=== PATIENT | male | born 1975 | race African-American/Black ===

== ENCOUNTER 2023-03-07 09:48 | Observation (INO) | payer OTHER, SELFPAY ==
[2023-03-07] VITALS (14 sets, daily range): BP systolic 161–190; BP diastolic 99–121; PULSE 77–102; RESP 14–23; TEMP 35.9–37.3; O2SAT 96–100; BMI 31.1; BMI 28.5
--- NOTE | 2023-03-07 10:15 | EKG12_ITS ---
Test Reason : CP Blood Pressure : / mmHG Vent. Rate : 092 BPM Atrial Rate : 092 BPM P-R Int : 168 ms QRS Dur : 100 ms QT Int : 364 ms P-R-T Axes : 043 -29 247 degrees QTc Int : 450 ms Normal sinus rhythm Moderate voltage criteria for LVH, may be normal variant ( R in aVL , [place] product ) ST & T wave abnormality, consider inferior ischemia ST & T wave abnormality, consider anterolateral ischemia Abnormal ECG Confirmed by ANGELA BAKER, MARIVEL ([id number]), senior technical editor BERHANE DYE ([id number]) on 03/08/2023 7:19:12 AM Referred By: KERRY Confirmed By:MARIVEL MILLER MD
--- NOTE | 2023-03-07 10:15 | RAD_ITS ---
STUDY: X-RAY CHEST REASON FOR EXAM: Male, 47 years old. Chest pain TECHNIQUE: Single AP portable view of the chest. COMPARISON: None. FINDINGS: EKG electrodes are seen. The lungs are clear and expanded. There is no demonstrated pleural abnormality. Normal size heart. Normal mediastinum and navarro. Normal visualized pulmonary arteries. There is atherosclerotic tortuosity of the aortic arch and descending thoracic aorta. Normal visualized thoracic spine. Normal visualized ribs, clavicles, and shoulders. There is no demonstrated abnormality of the visualized soft tissue structures of the upper abdomen. RAD/Chest 1 View (Portable) IMPRESSION: No acute abnormality is present. Electronically Signed: Satinder Li MD at 11:58 EST ,
--- NOTE | 2023-03-07 10:21 | NURSING ---
NO OLD EKGS
--- NOTE | 2023-03-07 10:29 | NURSING ---
NO OLD EKGS
[2023-03-07 10:43] LABS: Absolute Lymphocyte Count 2.56 X10^3/uL (0.83-4.51); Absolute Neutrophil Count 5.1 X10^3/uL (2.0-7.7); Basophil# 0.05 X10^3/uL; Basophil% 0.6 % (0-1); Eosinophil# 0.07 X10^3/uL; Eosinophils% 0.8 % (0-5); Hematocrit 47.4 % (40-54); Hemoglobin 15.4 g/dL (13.0-16.5); Lymphocyte # 2.56 X10^3/ul (0.83-4.51); Lymphocyte % 29.2 % (19-41); Mean Corp Hgb Conc 32.5 g/dL (32-36); Mean Corpuscular Hgb 26.1 pg (27.0-32.0); Mean Corpuscular Volume 80.2 fL (80-94); Monocyte# 0.93 X10^3/uL; Monocyte% 10.6 % (0-10); NRBC Flagged by Analyzer 0 % (0-5); Neutrophil # 5.12 X10^3/uL (2.7-7.7); Neutrophil % 58.2 % (47-70); POSITIVE MORPHOLOGY YES; Platelet Count 319 K/mm3 (150-450); RBC Distribution Width CV 12.7 % (11.6-14.6); RBC Distribution Width SD 36.3 fl (35.1-43.9); Red Blood Count 5.91 M/mm3 (4.6-6.2); White Blood Count 8.8 K/mm3 (4.4-11.0)
[2023-03-07 10:50] LABS: Differential Indicated SCAN CRITERIA MET
[2023-03-07] MEDS: Aspirin 81 MG TAB.CHEW 324 MG PO (10:52)
[2023-03-07 11:02] LABS: Anion Gap 4 (5-15); BUN 10 mg/dL (7-18); BUN/Creat Ratio 7.5 RATIO (10-20); Calcium,Total 9.1 mg/dL (8.5-10.1); Chloride 104 mmol/L (98-107); Creatinine, Serum 1.33 mg/dL (0.70-1.30); EST Glomerular Filtration Rate 61 mL/min (>60); Est Glom Filt Rate - Afr Amer 74 mL/min (>60); Glucose 166 mg/dL (74-106); Sodium Level 136 mmol/L (136-145); Troponin-I HS (w/2H Reflex) 72 pg/mL (3.0-78.0)
--- NOTE | 2023-03-07 11:16 | EDS_ITS ---
HPI History of Present Illness Chief Complaint: Chest Pain Detail of Chief Complaint: Presents with retrosternal chest discomfort, high blood sugar and recent UR Informant: patient and spouse/S.O. Onset/Context/Timing Onset: Weeks (Onset of illness started February 15) Activity at onset: sudden and other (Reports pain only with coughing) Timing: Intermittent Quality: Positive for Aching and Dull Location: Substernal Current Severity: Gone Maximum Severity: Moderate Worsened By: Exertion (Possibly) and Coughing; Not Worsened By Movement of Arm, Movement of Torso, Eating, Palpation or Breathing Relieved By: Nothing Associated Symptoms: Positive for Diaphoresis, Dyspnea and Cough; Negative for Nausea, Vomiting, Fever, Lightheadedness, Acid Reflux or Palpitations Narrative Narrative: Patient is a 47-year-old male with history of hypertension and type 2 diabetes. Patient has been diabetic since 2019. He has had hypertension since 2016 Prior Similar Symptoms: No Recent Illness/Hospitalization: Yes (Sinus infection diagnosed at [place] on amoxicillin) CVD Risk Factors: Positive for Hypertension, Diabetes and Hypercholesterolemia; Negative for Smoking PE Risk Factors: Positive for Recent Travel/Surgery; Negative for Recent Immobilization, Prior DVT or PE, Cancer or OCP + Smoking + >/=35 TAD Risk Factors: Positive for Hypertension and Family History; Negative for Marfan's Syndrome [facility] Medical History Diabetes Hypertension Allergy/AdvReac Type Severity Reaction Status Date / Time No Known Allergies Allergy Verified 03/07/23 09:49 Social History (Updated 03/07/23 @ 11:[address] Alber Philip MD) household members: significant other Smoking Status: Never smoker substance use type: does not use ROS ROS ED Constitutional Constitutional ED: Reports fever(s) and subjective; Denies chills, sweats or weight loss Eyes Eyes: Reports none ENT ENT ED: Reports rhinorrhea and sore throat; Denies ear pain Cardiovascular Cardiovascular: Reports as per HPI; Denies orthopnea or paroxysmal nocturnal dyspnea Respiratory/Chest Respiratory/Chest: Reports cough, dyspnea and dyspnea on exertion; Denies orthopnea, paroxysmal nocturnal dyspnea or sputum Gastrointestinal Gastrointestinal: Reports nausea; Denies abdominal pain, constipation, diarrhea, melena or vomiting Genitourinary Genitourinary ED: Denies dysuria, hematuria or urinary frequency Musculoskeletal Musculoskeletal: Denies arthralgias, back pain or myalgias Integumentary Denies rash Neurologic Neurologic: Denies headache(s) or paresthesias Endocrine Endocrinology: Denies cold intolerance or heat intolerance Hematologic/Lymphatic Hematologic/Lymphatic: Denies easy bleeding or easy bruising EXAM Physical Exam Const Vital Signs: 03/07/23 09:49 03/07/23 10:54 03/07/23 12:00 Temperature 96.6 F L Temperature Source Temporal Pulse Rate 95 82 Respiratory Rate 18 16 Blood Pressure 175/119 H 161/110 H Blood Pressure Mean 137 127 Pulse Ox 98 100 Oxygen Delivery Method Room Air Room Air 03/07/23 13:00 03/07/23 14:07 Temperature Temperature Source Pulse Rate 77 84 Respiratory Rate 21 H 14 Blood Pressure 168/106 H 177/112 H Blood Pressure Mean 126 133 Pulse Ox 98 97 Oxygen Delivery Method Room Air Room Air Positive well nourished and well developed General Appearance ED: well developed and NAD; Negative for pallor HEENT Reports TM's clear and dry mucous membranes normocephalic and atraumatic Tympanic Membrane ED: Yes TM's clear Mouth ED: Yes dry mucous membranes Mouth: dry mucous membranes Eyes PERRL and EOMs intact bilaterally General Eye ED: Negative for pale conjunctiva or scleral icterus Neck no lymphadenopathy, supple and no JVD Chest Wall inspection of chest normal and palpation of chest normal Resp normal respiratory effort and clear to auscultation bilaterally Cardio regular rate, regular rhythm, S1 normal heart sound, S2 normal heart sound and no murmurs Peripheral Pulses: pulses 2+ throughout GI normal to inspection, nondistended, normoactive bowel sounds, soft to palpation, non-tender, non-distended and no masses; Negative for hepatosplenomegaly Back/Spine no CVA tenderness and no thoracic nor lumbar tenderness Extremity normal to inspection Extremity Narrative: Have evidence of dry skin. There is no asymmetry, swelling, discoloration, leg vein distention, palpable cords or tenderness along the distribution of the deep venous system. General Extremety ED: Negative for edema or pulses abnormal General Extremity: Negative for edema or pulses abnormal Neuro oriented x3, CN's II-XII intact bilaterally, no sensory deficits noted and gait normal Sensorium / Orientation: awake and alert Psych mental status grossly normal Skin Skin Narrative: Dyshidrotic eczema, atopic to dermatitis General Skin Exam: Negative for jaundice or pallor Heart Score History: Slightly/Non-Suspicious ECG: Nonspecific Repolarization Age: >45 - <65 years Risk Factors: >/= 3 Risk Factors or History of CAD Troponin: </= Normal Limit Score: 4 MDM MDM MDM Narrative Medical decision making narrative: Patient presents with upper respiratory symptoms started February 15. He has had 2 long distance trips 1 to [facility] where his parents live and then to [place] to go to a . He presently denies dyspnea or pleuritic chest pain and denies symptoms suggestive of DVT. Is PERC negative. Concerned this may represent atypical cardiac presentation in light of his abnormal EKG and there is no old EKGs for comparison. For this reason we will obtain troponin with repeat troponin hours. His main complaint is elevated blood sugar but he is not tachypneic or tachycardic to suggest DKA. Will obtain BMP. Do not need an emergent BGT. History & Record Review Discussion w/independent historian: Patient and Significant other Lab Data Attestation: I reviewed the patient's lab results. Lab results narrative: CBC is unremarkable. Basic metabolic panel reveals a BUN of 10 and a creatinine of 1.33 with an estimated GFR 74. Glucose is slightly elevated 166 with a normal CO2 anion gap. Labs: Laboratory Results - last 24 hr 03/07/23 03/07/23 10:30 13:05 WBC 8.8 RBC 5.91 Hgb 15.4 Hct 47.4 MCV 80.2 MCH 26.1 L MCHC 32.5 RDW Std Deviation 36.3 RDW Coeff of Minh 12.7 Plt Count 319 MPV 11.0 Immature Gran % (Auto) 0.600 Neut % (Auto) 58.2 Lymph % (Auto) 29.2 Schleicher % (Auto) 10.6 H Eos % (Auto) 0.8 Baso % (Auto) 0.6 Absolute Neuts (auto) 5.1 Absolute Lymphs (auto) 2.56 Nucleated RBC % 0 Differential Comment SCANNED Sodium 136 Potassium 4.0 Chloride 104 Carbon Dioxide 28.0 Anion Gap 4 L BUN 10 Creatinine 1.33 H Estim Creat Clear Calc 70.40 Est GFR (MDRD) Af Amer 74 Est GFR (MDRD) Non-Af 61 BUN/Creatinine Ratio 7.5 L Glucose 166 H Calcium 9.1 Troponin I High Sens 72 52 Radiography Chest X-Ray - ED: 1 View and Read by ED Physician (Head size normal. Lung parenchyma normal. Perihilar region normal. Osseous structures unremarkable. This was entirely reviewed interpreted by me at 1112.) Diagnostic Testing: Clinical Impression(s) from Imaging Studies Chest X-Ray 03/07/23 10:15 IMPRESSION: No acute abnormality is present. Electronically Signed: Satinder Li MD at 11:58 EST , EKG Initial EKG: Attestation: I personally reviewed and interpreted this EKG as follows: Interpretation: Sinus Rhythm (Is 92. MN interval is under 68 ms. Cures duration 100 ms. QT durations are 64 ms. [place] is normal. Possible borderline LVH. Patient has ischemic changes in the anterolateral leads V3 through V6. Disagree with computer interpretation of inferior ischemic changes.) Prior: No Prior Management Discussion w/another healthcare provider: Hospitalist and Bottoming Room Supervisor (Dr. Terry regarding patient's presentation past medical history and EKG findings. [facility] with consult to him.) Discharge Plan Triage Chief Complaint: Chest Pain ED Provider: Alber Philip Dx/Rx/DC Orders Clinical Impression: Type 2 diabetes mellitus with hyperglycemia, Diastolic blood pressure 90 mm Hg or higher, Atypical chest pain, Abnormal ECG Primary Care Provider: Gene Saldana Referrals: Gene Saldana MD [Primary Care Provider] - Disposition Disposition: Acute Care Hospital [facility]
[2023-03-07 11:42] LABS: Differential Comment SCANNED
[2023-03-07 12:36] LABS: Reflex Troponin-HS? (from REC) Y
[2023-03-07 13:29] LABS: Troponin-I HS 52 pg/mL (3.0-78.0)
--- NOTE | 2023-03-07 14:42 | PCM.HP.STD ---
HPI - General General Date of Admission: 03/07/23 Date of Service: 03/07/23 Chief Complaint: Chest pain, dyspnea. HPI Narrative The patient is a 47 y/o M w/ PMHx: Diabetes mellitus type II, Obesity, HTN, Suspected CKD stage II unclear subtype based on GFR trending (current recommendations to use non-Af GFR) who presents to the [facility] ED on 03/07/23 with history of onset of retrosternal chest discomfort with history of recent upper respiratory infection starting approximate February 15 with discomfort in his chest initially primarily with coughing noted to be intermittent however now with dull and aching sensation primarily in the substernal region with diaphoresis and dyspnea associated prompting eventual ED evaluation. He does report that he was diagnosed recently at [place] with sinus infection and was given possibly Augmentin at that time. He recently moved to [place]. In the ED currently he denies any chest pain but when he was having chest discomfort he reports the discomfort 3-4 out of 10 in severity. He denies any current dyspnea at this time as well. Workup in the ED included T96.6, heart rate 95, BP initially 175/119 with most recent repeat 177/112, respiratory rate 14, 97% room air, CBC with WBC 8.8, Ariel 15.4, platelet 319 without marked shift, BMP with BUN/pain 10/1.33, glucose 166, troponin initial 72 with repeat delta 52, chest x-ray no acute cardiopulmonary finding, EKG with sinus rhythm with ischemic changes in the anterior leads V3 through V6 with no prior comparison. ED did discuss case with waste chopper Dr. Grant. In the ED patient ministered full-strength aspirin therapy. [facility] Medical History (Updated 03/07/23 @ 14:[address] Desirae Nice MD) CKD (chronic kidney disease), stage II Diabetes Hypertension Obesity Home Medications lisinopril 10 mg tablet 10 mg PO DAILY 03/07/23 [History Last Taken 03/07/23] metformin 500 mg tablet 1,000 mg PO BID 03/07/23 [History Last Taken 03/07/23] Allergy/AdvReac Type Severity Reaction Status Date / Time No Known Allergies Allergy Verified 03/07/23 09:49 Family History (Updated 03/07/23 @ 16:[address] Desirae Nice MD) Mother Hypertension Father Hypertension Diabetes Surgical History (Updated 03/07/23 @ 16:[address] Desirae Nice MD) No history of previous surgery Surgical History no surgical history no surgical history Social History (Updated 03/07/23 @ 16:[address] Desirae Nice MD) household members: significant other Smoking Status: Never smoker alcohol intake: never substance use type: does not use ROS ROS Narrative Admission Review of Systems: CONSTITUTIONAL: No weight loss, fever, chills, + weakness or fatigue. HEENT: Eyes: No visual loss, blurred vision, double vision or yellow sclerae. Ears, Nose, Throat: No hearing loss, sneezing, congestion, runny nose or sore throat. SKIN: No rash or itching, lesions, wounds. CARDIOVASCULAR: + Chest pain. Palpitations, edema, orthopnea, syncopal events. RESPIRATORY: + Shortness of breath. Cough or sputum, wheezing, hemoptysis. GASTROINTESTINAL: No anorexia, nausea, vomiting or diarrhea, abdominal pain, melena, BRBPR. GENITOURINARY: No dysuria, frequency, urgency or retention. NEUROLOGICAL: No headache, dizziness, syncope, paralysis, ataxia, numbness or tingling in the extremities, focal weakness, change in bowel or bladder control, seizure. MUSCULOSKELETAL: + muscle, back pain, joint pain or stiffness. HEMATOLOGIC: No anemia, bleeding or bruising. LYMPHATICS: No enlarged nodes. No history of splenectomy. PSYCHIATRIC: No history of depression or anxiety. ENDOCRINOLOGIC: No reports of sweating, cold or heat intolerance. No polyuria or polydipsia. ALLERGIES: No history of asthma, hives, eczema or rhinitis. Vital Signs Vital Signs Vital Signs: 03/07/23 09:49 03/07/23 10:54 03/07/23 12:00 Temperature 96.6 F L Temperature Source Temporal Pulse Rate 95 82 Respiratory Rate 18 16 Blood Pressure 175/119 H 161/110 H Blood Pressure Mean 137 127 Pulse Ox 98 100 Oxygen Delivery Method Room Air Room Air 03/07/23 13:00 03/07/23 14:07 03/07/23 14:37 Temperature Temperature Source Pulse Rate 77 84 89 Respiratory Rate 21 H 14 19 H Blood Pressure 168/106 H 177/112 H 187/114 H Blood Pressure Mean 126 133 138 Pulse Ox 98 97 97 Oxygen Delivery Method Room Air Room Air Weight Weight: 192 lb 14.4 oz Body Mass Index (BMI) 31.1 Physical Exam Narrative Physical Examination: General: Awake, alert, oriented x 3 and cooperative, seated upright in the ED bed, fatigued, denies any current chest pain or dyspnea. Skin: Normal color, normal turgor, no icterus, no cyanosis. HEENT: AT/NC, EOMI, PERRLA, mildly dry MM, no carotid bruits or JVD noted. Lungs: CTA bilaterally, moderate effort, mild decrease BL bases, no rales, ronchi or wheezing. Heart: Regular rate and rhythm; no gallop, rub audible. Abdomen: Soft, obese, NTTP, ND, hyperactive BS, no appreciated HSM. Extremities: No cyanosis, clubbing, or edema. Neurological: Patient awake, alert, oriented as noted, cognitive function intact; pupils equally reactive to light and accommodation, cranial nerves II-XII grossly normal, moving all 4 extremities, no focal deficits, strength mildly to moderately global decrease secondary to acute presentation complaints. Psychiatric: Affect appears fatigued otherwise normal, no acute evidence of depressive or anxiety feelings. Results Lab / Micro Data 03/07/23 10:30 03/07/23 10:30 Labs: Laboratory Results - last 24 hr 03/07/23 10:30: WBC 8.8, RBC 5.91, Hgb 15.4, Hct 47.4, MCV 80.2, MCH 26.1 L, MCHC 32.5, RDW Std Deviation 36.3, RDW Coeff of Minh 12.7, Plt Count 319, MPV 11.0, Immature Gran % (Auto) 0.600, Neut % (Auto) 58.2, Lymph % (Auto) 29.2, Morris % (Auto) 10.6 H, Eos % (Auto) 0.8, Baso % (Auto) 0.6, Absolute Neuts (auto) 5.1, Absolute Lymphs (auto) 2.56, Nucleated RBC % 0, Differential Comment SCANNED, Sodium 136, Potassium 4.0, Chloride 104, Carbon Dioxide 28.0, Anion Gap 4 L, BUN 10, Creatinine 1.33 H, Estim Creat Clear Calc 70.40, Est GFR (MDRD) Af Amer 74, Est GFR (MDRD) Non-Af 61, BUN/Creatinine Ratio 7.5 L, Glucose 166 H, Calcium 9.1, Troponin I High Sens 72 03/07/23 13:05: Troponin I High Sens 52 Imagaing Radiology Impression Chest X-Ray 03/07/23 10:15 IMPRESSION: No acute abnormality is present. Electronically Signed: Satinder Li MD at 11:58 EST , Assessment & Plan Assessment/Plan (1) Atypical chest pain: (2) Abnormal ECG: PLAN: Plan The patient is a 47 y/o M w/ PMHx: Obesity, HTN, Suspected CKD stage II unclear subtype based on GFR trending (current recommendations to use non-Af GFR) who presents to the [facility] ED on 03/07/23 with history of onset of retrosternal chest discomfort with history of recent upper respiratory infection starting approximate February 15 with discomfort in his chest initially primarily with coughing noted to be intermittent however now with dull and aching sensation primarily in the substernal region with diaphoresis and dyspnea associated prompting eventual ED evaluation. #1. Chest Pain with Ischemic EKG changes: ED evaluation with troponin initial 72 with repeat delta 52, chest x-ray no acute cardiopulmonary finding, EKG with sinus rhythm with ischemic changes in the anterior leads V3 through V6 with no prior comparison. Will admit to PCU, place on a monitored bed to assure no acute myocardial infarction with serial cardiac enzymes and EKGs. Mag pending. FLP in AM. Cardiology consulted given concern for ischemic type changes with no comparison. ECHO requested. Will judiciously hydrate and maintain n.p.o. status after midnight pending their input in case of cardiac catheterization. ASA, NG, morphine. #2. Recent upper respiratory infection/acute viral syndrome, sinus infection: Patient status post treatment for sinus infection with possibly Augmentin from description and upper respiratory infection however this was several weeks prior, encourage continued diligent self-care. #3. Diabetes mellitus type II: Hold oral home regimen, continue home insulin regimen, ADA diet, accu checks w/ ISS. #4. Hypertension: Continue home regimen lisinopril, PRN hydralazine. #5. Obesity: Weight loss and lifestyle changes encouraged. #6. Suspected Chronic Kidney Disease Stage II based on GFR trending: Admission BUN/Cr 11/25., unclear baseline, will continue to trend. May benefit from early referral outpatient to Nephrology. #7. DVT prophylaxis: Lovenox. #8. CODE status: Patient HCPOA and living will not in place but he notes if he was unable he would want his girlfriend Marina to be his decision-maker. Discussed CODE status at length including difference between FULL code, DNR-CCA and DNR-CC status. Following discussions about the differences in these status, requested Full Code status. Charges/Coding Visit Charges Inpatient E&M: 40209 Init Hosp L2
[2023-03-07] MEDS: Labetalol (Prefilled) 20 MG/4 ML 10 MG IV (15:27)
--- NOTE | 2023-03-07 15:29 | ED.RN ---
Patient states I just took my blood pressure medicine , without asking staff patient self medicated for his concerns for his blood pressure (approx 15 minutes prior). Patient takes 1-10mg Lisinopril daily and that was what he took. This nurse was coming to the room to medicate patient with labetalol as ordered after requesting due to hypertension. Dr. Philip notified and due to consisitent hypertension acknowledge and order to continue with ordered labetalol dose.
[2023-03-07 15:53] LABS: Bedside Glucose 109 mg/dL (74-106)
--- NOTE | 2023-03-07 16:48 | EKG12_ITS ---
Test Reason : AM EKG Blood Pressure : / mmHG Vent. Rate : 111 BPM Atrial Rate : 111 BPM P-R Int : 152 ms QRS Dur : 086 ms QT Int : 346 ms P-R-T Axes : 049 -21 -13 degrees QTc Int : 470 ms Sinus tachycardia with occasional Premature ventricular complexes Minimal voltage criteria for LVH, may be normal variant ( R in aVL ) ST & T wave abnormality, consider lateral ischemia Abnormal ECG Confirmed by ANGELA BAKER, MARIVEL ([id number]), editor managing director MARIUSZ QUIROZ ([id number]) on 03/08/2023 9:45:55 AM Referred By: CHRISTIE Confirmed By:MARIVEL MILLER MD
[2023-03-07 17:17] LABS: Magnesium 2.2 mg/dL (1.6-2.6)
--- OUTSIDE RECORDS SUMMARY | 2023-03-07 17:37 | XMS RPT_ITS | CCD ---
Author Name Unknown Address [address] [place] [address] Organization [facility] Care Team Providers Care Content Management Specialist Name Role Phone DAMIEN BAKER, DR ANTOINE Attending Unavailab le PHYSICIAN, NONE Primary Care Unavailable Results Test Name Value Interpretation Reference Range Facil ity Encounters Encounter Date Encounter Type Care Provider Facility Start: 03-03-2023 End: 03-03-2023 Emergency department patient visit DR ARASH QUEZADA MD Facility:B Payers Date Payer Category Payer Unknown [id number] 1975 Unknown [id number] Summary Purpose Family History No Family History Records Found Advance Directives No Advanced Directives Records Found Additional Source Comments (unrecognized sect ion and content) No Status Records Found INFORMATION SOURCE (unrecogn ized section and content) FOR RECORDS PERTAINING TO PATIENTS WHO ARE OR HAVE BEEN ENROLLED IN A CHEMICAL DEPENDENCY/SUBSTANCEABUSE PROGRAM, SOME INFORMATION MAY BE OMITTED. This clinical summary was aggregated from multiple sources. Caution should be exercised in using it in the provision of clinical care. This summary normalizes information from multiple sources, and as a consequence, information in this document may materially change the coding, format and clinical context of patient data. In addition, data may be omitted in some cases. CLINICAL DECISIONS SHOULD BE BASED ON THE PRIMARY CLINICAL RECORDS. [employer] provides no warranty or guarantee of the accuracy or completeness of information in this document.
[2023-03-07] MEDS: hydrALAZINE 20 MG/ML Vial 10 MG IV ×2 (18:57→21:53)
--- NOTE | 2023-03-07 19:27 | PCM.CONS.C ---
Assessment & Plan Assessment/Plan (1) Atypical chest pain: PLAN: He does present with atypical chest pain and normal cardiac enzymes. He however is noted to have a markedly abnormal EKG. I would recommend at this time that we defer stress testing and consider a cardiac catheterization. Depending on the findings further recommendations will be made. (2) Hypertension: PLAN: I did emphasize to him that we do need aggressive blood pressure therapy. I will suggest that we start him on amlodipine 10 mg a day, increase his lisinopril to 40 mg a day, continue to monitor his renal profile carefully. I would also recommend an echocardiogram to assess his ventricular function. (3) Abnormal ECG: PLAN: He does have abnormal EKG. It is unclear whether this is from hypertension or from coronary artery disease. This would need to be evaluated likely with a left heart catheterization. HPI Consult Data Date of Consult: 03/07/23 HPI Narrative HPI Narrative: MARIA A PERKINS, is a 47 M who presents to the emergency room with chest discomfort. He was recently seen in an emergency room at [facility] with a sinus infection and prescribed an antibiotic. He said that he has been having intermittent chest discomfort described as a heaviness. He does have a history of known hypertension but has not been taking his medications routinely since he immigrated from [facility]. He denies any dizziness or diaphoresis near syncope or syncope he is also been diagnosed with diabetes mellitus. In the emergency room an EKG was done which demonstrated T wave inversions. Cardiology was called for further evaluation and management. His cardiac enzymes were noted to be normal. ON LICENSE OF [facility] Medical History (Updated 03/07/23 @ 19:[address] Vignesh Grant MD) CKD (chronic kidney disease), stage II Diabetes Hypertension Obesity Home Medications lisinopril 10 mg tablet 10 mg PO DAILY 03/07/23 [History Last Taken 03/07/23] metformin 500 mg tablet 1,000 mg PO BID 03/07/23 [History Last Taken 03/07/23] Allergy/AdvReac Type Severity Reaction Status Date / Time No Known Allergies Allergy Verified 03/07/23 09:49 Family History Mother Hypertension Father Hypertension Diabetes Surgical History No history of previous surgery Surgical History no surgical history Social History household members: significant other Smoking Status: Never smoker alcohol intake: never substance use type: does not use ROS Constitutional Constitutional: Denies fever(s) or weight loss Eyes Eyes: Reports systems reviewed and no addt'l complaints, except as documented ENT HEENT: Reports systems reviewed and no addt'l complaints, except as documented Cardiovascular Cardiovascular: Reports chest pain at rest and chest pain with activity; Denies dyspnea at rest, dyspnea on exertion, edema, palpitations or paroxysmal nocturnal dyspnea Respiratory/Chest Respiratory/Chest: Reports shortness of breath with exertion; Denies dyspnea on exertion, productive cough or shortness of breath at rest Gastrointestinal Gastrointestinal: Denies change in bowel habits, nausea, vomiting or weight changes Genitourinary Genitourinary: Denies difficulty urinating Musculoskeletal Musculoskeletal: Denies joint stiffness or muscle weakness Integumentary Integumentary: Denies lesions Neurologic Neurologic: Denies dizziness or syncope Psychiatric Psychiatric: Denies anxiety Endocrine Endocrinology: Denies excessive sweating or fatigue Hematologic/Lymphatic Hematologic/Lymphatic: Denies anemia Allergic/Immunologic Allergic/Immunologic: Denies seasonal rhinorrhea Risk Stratification Risk Stratification Applicable: Yes Age >/= 65: No >/= 3 CAD Risk Factors (HTN, HLD, DM, family hx of CAD, or current smoker): Yes Aspirin Use in the Past 7 Days: No Severe Angina (>/= episodes in 24 hours): No EKG ST Changes >/= 0.5mm: Yes Positive Cardiac Marker: No BILLY Risk Stratification Score: 2 BILLY % Risk: 8% Risk Objective Data Vital Signs: Vital Signs Temp Pulse Resp BP Pulse Ox O2 Del Method 96.6 F L 100 20 H 180/121 H 97 Room Air 03/07/23 09:49 03/07/23 19:17 03/07/23 19:00 03/07/23 19:17 03/07/23 19:00 03/07/23 18:00 Oxygen Delivery Method Room Air Weight: 192 lb 14.4 oz Body Mass Index (BMI) 31.1 Lab / Micro Data 03/07/23 10:30 03/07/23 10:30 Labs: Laboratory Results - last 24 hr 03/07/23 10:30: WBC 8.8, RBC 5.91, Hgb 15.4, Hct 47.4, MCV 80.2, MCH 26.1 L, MCHC 32.5, RDW Std Deviation 36.3, RDW Coeff of Minh 12.7, Plt Count 319, MPV 11.0, Immature Gran % (Auto) 0.600, Neut % (Auto) 58.2, Lymph % (Auto) 29.2, [place] % (Auto) 10.6 H, Eos % (Auto) 0.8, Baso % (Auto) 0.6, Absolute Neuts (auto) 5.1, Absolute Lymphs (auto) 2.56, Nucleated RBC % 0, Differential Comment SCANNED, Sodium 136, Potassium 4.0, Chloride 104, Carbon Dioxide 28.0, Anion Gap 4 L, BUN 10, Creatinine 1.33 H, Estim Creat Clear Calc 70.40, Est GFR (MDRD) Af Amer 74, Est GFR (MDRD) Non-Af 61, BUN/Creatinine Ratio 7.5 L, Glucose 166 H, Calcium 9.1, Troponin I High Sens 72 03/07/23 13:05: Magnesium 2.2, Troponin I High Sens 52 03/07/23 15:36: POC Glucose 109 H Cardiology Labs/Tests 03/07/23 10:30: WBC 8.8, RBC 5.91, Hgb 15.4, Hct 47.4, MCV 80.2, MCH 26.1 L, MCHC 32.5, Plt Count 319, MPV 11.0, Immature Gran % (Auto) 0.600, Neut % (Auto) 58.2, Lymph % (Auto) 29.2, [place] % (Auto) 10.6 H, Eos % (Auto) 0.8, Baso % (Auto) 0.6, Absolute Neuts (auto) 5.1, Nucleated RBC % 0, Sodium 136, Potassium 4.0, Chloride 104, Carbon Dioxide 28.0, Anion Gap 4 L, BUN 10, Creatinine 1.33 H, Est GFR (MDRD) Af Amer 74, Est GFR (MDRD) Non-Af 61, BUN/Creatinine Ratio 7.5 L, Glucose 166 H, Calcium 9.1 03/07/23 13:05: Magnesium 2.2 Rhythm: EKG: ECHO: Stress Test: Cardiac Cath: PCI: CT Surgery: Holter monitor: EPS: PPM: CXR: Chest CT Scan: Radiography Diagnostic Testing: Radiology Impression Chest X-Ray 03/07/23 10:15 IMPRESSION: No acute abnormality is present. Electronically Signed: Satinder Li MD at 11:58 EST ,
--- NOTE | 2023-03-07 21:06 | ECHOD_ITS ---
Reason For Study: SOB Procedure This was a 2D Doppler, Color Flow transthoracic echocardiogram. Exam performed portable in patient room. Left Ventricle Normal LV size. Left ventricular systolic function is lower limits of normal. The left ventricular ejection fraction is 55 %. Mid-Inferior: Hypokinetic. Right Ventricle Normal RV size. Normal systolic function. Atria Normal left atrium. Normal right atrium. Mitral Valve Normal mitral valve. Tricuspid Valve Normal tricuspid valve. Mild (1+) tricuspid valve insufficiency. Pulmonary artery systolic pressure is 34 mmHg. Aortic Valve Normal aortic valve. Trisinus/trileaflet aortic valve. Pulmonic Valve Normal pulmonic valve. Great Vessels Normal aortic root. The pulmonary artery is normal size. Inferior vena cava collapse with respiration. Pericardium/Pleural No pericardial effusion. MMode/2D Measurements & Calculations LVIDd: 4.8 cm IVSd: 1.1 cm Ao root diam: 3.0 cm LVIDs: 3.3 cm LVPWd: 1.1 cm RVDd: 3.4 cm FS: 30.6 % LAV(MOD-bp): 46.4 ml LVAd ap4: 36.2 cm2 LVAd ap2: 30.7 cm2 LAV(MOD-bp) Indexed: 24.4 ml/m2 LVLd ap4: 9.2 cm LVLd ap2: 8.8 cm LAV(MOD-sp2): 50.7 ml EDV(MOD-sp4): 114.0 ml EDV(MOD-sp2): 92.1 ml LAV(MOD-sp4): 38.6 ml EDV(sp4-el): 121.1 ml EDV(sp2-el): 91.0 ml LVAs ap4: 23.0 cm2 LVAs ap2: 19.1 cm2 LVLs ap4: 8.2 cm LVLs ap2: 7.5 cm ESV(MOD-sp4): 52.9 ml ESV(MOD-sp2): 44.1 ml ESV(sp4-el): 55.0 ml ESV(sp2-el): 41.4 ml EF(MOD-sp4): 53.6 % EF(MOD-sp2): 52.1 % EF(sp4-el): 54.6 % SV(MOD-sp4): 61.1 ml SV(MOD-sp2): 48.0 ml SV(sp4-el): 66.1 ml LA dimension(2D): 3.8 cm LA A4 area: 14.1 cm2 RA A4 area: 14.7 cm2 TAPSE: 2.0 cm Doppler Measurements & Calculations MV E max jarad: 114.9 cm/sec Lat Peak E' Jarad: 12.6 cm/sec Med Peak E' Jarad: 17.2 cm/sec E/E' lat: 9.1 E/E' med: 6.7 Ao V2 max: 159.4 cm/sec LV V1 max: 132.2 cm/sec PA V2 max: 142.2 cm/sec Ao max P.2 mmHg LV V1 max P.0 mmHg PA V2 mean: 93.2 cm/sec TR max jarad: 273.9 cm/sec TR max P.0 mmHg ECHO/Echo Complete Interpretation Summary Normal LV size. Left ventricular systolic function is lower limits of normal. The left ventricular ejection fraction is 55 %. Mild (1+) tricuspid valve insufficiency. Ordering Physician: Desirae Nice Referring Physician: Gene Saldana Performed By: Saurabh Barnhart RCS
[2023-03-07] MEDS: 0.9% Saline Lock 10 ML Syringe IV (21:53)
[2023-03-07 22:06] LABS: Troponin-I HS 50 pg/mL (3.0-78.0)
[2023-03-07 23:09] LABS: Bedside Glucose 112 mg/dL (74-106)
[2023-03-07] MEDS: 0.9% Normal Saline (1000mL) 1,000 ML 100 ML IV (23:12)
[2023-03-08] VITALS (19 sets, daily range): BP systolic 128–186; BP diastolic 77–116; PULSE 95–115; RESP 14–18; TEMP 36.6–37.4; O2SAT 93–100; BMI 35.6
[2023-03-08] MEDS: hydrALAZINE 20 MG/ML Vial 10 MG IV ×2 (03:27→10:05)
--- NOTE | 2023-03-08 05:55 | EKG12_ITS ---
Test Reason : ADM EKG Blood Pressure : / mmHG Vent. Rate : 091 BPM Atrial Rate : 091 BPM P-R Int : 160 ms QRS Dur : 100 ms QT Int : 360 ms P-R-T Axes : 036 -25 177 degrees QTc Int : 442 ms Normal sinus rhythm Moderate voltage criteria for LVH, may be normal variant ( R in aVL , Noe product ) ST & T wave abnormality, consider anterolateral ischemia Abnormal ECG Confirmed by ANGELA BAKER, MARIVEL ([id number]), staff editor MARIUSZ QUIROZ ([id number]) on 03/08/2023 9:46:21 AM Referred By: CHRISTIE Confirmed By:MARIVEL MILLER MD
[2023-03-08 06:10] LABS: Absolute Lymphocyte Count 2.01 X10^3/uL (0.83-4.51); Absolute Neutrophil Count 5.4 X10^3/uL (2.0-7.7); Basophil# 0.02 X10^3/uL; Basophil% 0.2 % (0-1); Eosinophil# 0.02 X10^3/uL; Eosinophils% 0.2 % (0-5); Hemoglobin 14.4 g/dL (13.0-16.5); Lymphocyte # 2.01 X10^3/ul (0.83-4.51); Mean Corp Hgb Conc 32.7 g/dL (32-36); Mean Corpuscular Hgb 25.7 pg (27.0-32.0); Mean Corpuscular Volume 78.4 fL (80-94); Monocyte# 0.87 X10^3/uL; Monocyte% 10.4 % (0-10); NRBC Flagged by Analyzer 0 % (0-5); Neutrophil % 64.7 % (47-70); Platelet Count 322 K/mm3 (150-450); RBC Distribution Width CV 12.7 % (11.6-14.6); RBC Distribution Width SD 36.2 fl (35.1-43.9); Red Blood Count 5.61 M/mm3 (4.6-6.2); White Blood Count 8.4 K/mm3 (4.4-11.0)
[2023-03-08] MEDS: amLODIPine 10 MG Tablet PO (06:15)
[2023-03-08] MEDS: Lisinopril 40 MG Tablet PO (06:15)
[2023-03-08 06:46] LABS: AST(SGOT) 19 U/L (15-37); Alanine Aminotransfer ALT/SGPT 33 U/L (16-61); Albumin, Serum 3.9 g/dL (3.2-5.0); Alkaline Phosphatase 64 U/L (45-117); Anion Gap 6 (5-15); BUN 9 mg/dL (7-18); BUN/Creat Ratio 7.7 RATIO (10-20); Calcium,Total 8.8 mg/dL (8.5-10.1); Chloride 105 mmol/L (98-107); Cholesterol 128 mg/dL (200); Creatinine, Serum 1.17 mg/dL (0.70-1.30); EST Glomerular Filtration Rate 71 mL/min (>60); Est Glom Filt Rate - Afr Amer 86 mL/min (>60); Estimated Creatinine Clearance 85.53 ml/min; Glucose 174 mg/dL (74-106); High Density Lipoprotein 27 mg/dL; Potassium 3.4 mmol/L (3.5-5.1); Protein, Total 7.9 g/dL (6.4-8.2); Sodium Level 138 mmol/L (136-145); Triglycerides 309 mg/dL; Very Low Density Lipoprotein 62 mg/dL (5-40)
[2023-03-08] MEDS: Aspirin E.C. 81 MG Tablet PO (07:08)
[2023-03-08 07:20] LABS: Bedside Glucose 190 mg/dL (74-106)
[2023-03-08] MEDS: Acetaminophen 325 MG Tablet 650 MG PO (08:29)
[2023-03-08 09:07] LABS: Hemoglobin A1c 7.6 % (3.8-5.6)
--- NOTE | 2023-03-08 09:52 | PN.HOSP_ITS ---
Reason for Visit Reason for Visit: Diagnoses Essential (primary) hypertension (03/07/23) Other chest pain (03/07/23) Abnormal electrocardiogram [ECG] [EKG] (03/07/23) Objective Data Objective Data Vital Signs: Vital Signs Temp Pulse Resp BP Pulse Ox O2 Del Method 98 F 110 H 14 163/109 H 96 Room Air 03/08/23 08:40 03/08/23 08:40 03/08/23 08:40 03/08/23 08:40 03/08/23 08:40 03/08/23 08:40 Oxygen Delivery Method Room Air Weight: 100.1 kg Body Mass Index (BMI) 35.6 Intake & Output: Intake and Output for Last 24 Hours 03/06/23 03/07/23 03/08/23 23:59 23:59 23:59 Intake Total 250 / 250 1000 / 1000 Output Total 1025 / 1025 Balance 250 / 250 -25 / -25 Lab / Micro Data 03/08/23 05:30 03/08/23 05:30 Labs: Laboratory Results - last 24 hr 03/07/23 10:30: WBC 8.8, RBC 5.91, Hgb 15.4, Hct 47.4, MCV 80.2, MCH 26.1 L, MCH C 32.5, RDW Std Deviation 36.3, RDW Coeff of Minh 12.7, Plt Count 319, MPV 11.0, Immature Gran % (Auto) 0.600, Neut % (Auto) 58.2, Lymph % (Auto) 29.2, Randall % (Auto) 10.6 H, Eos % (Auto) 0.8, Baso % (Auto) 0.6, Absolute Neuts (auto) 5.1, Absolute Lymphs (auto) 2.56, Nucleated RBC % 0, Differential Comment SCANNED, Sodium 136, Potassium 4.0, Chloride 104, Carbon Dioxide 28.0, Anion Gap 4 L, BUN 10, Creatinine 1.33 H, Estim Creat Clear Calc 70.40, Est GFR (MDRD) Af Amer 74, Est GFR (MDRD) Non-Af 61, BUN/Creatinine Ratio 7.5 L, Glucose 166 H, Calcium 9.1, Troponin I High Sens 72 03/07/23 13:05: Magnesium 2.2, Troponin I High Sens 52 03/07/23 15:36: POC Glucose 109 H 03/07/23 17:30: Troponin I High Sens 50 03/07/23 22:49: POC Glucose 112 H 03/08/23 05:30: WBC 8.4, RBC 5.61, Hgb 14.4, Hct 44.0, MCV 78.4 L, MCH 25.7 L, MCHC 32.7, RDW Std Deviation 36.2, RDW Coeff of Minh 12.7, Plt Count 322, MPV 11.0, Immature Gran % (Auto) 0.500, Neut % (Auto) 64.7, Lymph % (Auto) 24.0, Randall % (Auto) 10.4 H, Eos % (Auto) 0.2, Baso % (Auto) 0.2, Absolute Neuts (auto) 5.4, Absolute Lymphs (auto) 2.01, Nucleated RBC % 0, Sodium 138, Potassium 3.4 L, Chloride 105, Carbon Dioxide 27.0, Anion Gap 6, BUN 9, Creatinine 1.17, Estim Creat Clear Calc 85.53, Est GFR (MDRD) Af Amer 86, Est GFR (MDRD) Non-Af 71, BUN/Creatinine Ratio 7.7 L, Glucose 174 H, Hemoglobin A1c 7.6 H, Calcium 8.8, Total Bilirubin 0.50, AST 19, ALT 33, Alkaline Phosphatase 64, Total Protein 7.9, Albumin 3.9, Globulin 4.0, Albumin/Globulin Ratio 1.0, Triglycerides 309 H, Cholesterol 128, LDL Cholesterol 39, VLDL Cholesterol 62 H, HDL Cholesterol 27 L 03/08/23 07:01: POC Glucose 190 H Radiography Diagnostic Testing: Radiology Impression Chest X-Ray 03/07/23 10:15 IMPRESSION: No acute abnormality is present. Electronically Signed: Satinder Li MD at 11:58 EST , Physical Exam Narrative Physical Examination: General: Awake, alert, oriented x 3 and cooperative, seated upright in the ED bed, fatigued, denies any current chest pain or dyspnea. Skin: Normal color, normal turgor, no icterus, no cyanosis. HEENT: AT/NC, EOMI, PERRLA, mildly dry MM, no carotid bruits or JVD noted. Lungs: CTA bilaterally, moderate effort, mild decrease BL bases, no rales, ronchi or wheezing. Heart: Regular rate and rhythm; no gallop, rub audible. Abdomen: Soft, obese, NTTP, ND, hyperactive BS, no appreciated HSM. Extremities: No cyanosis, clubbing, or edema. Neurological: Patient awake, alert, oriented as noted, cognitive function intact; pupils equally reactive to light and accommodation, cranial nerves II- XII grossly normal, moving all 4 extremities, no focal deficits, strength mildly to moderately global decrease secondary to acute presentation complaints. Psychiatric: Affect appears fatigued otherwise normal, no acute evidence of depressive or anxiety feelings. Assessment & Plan Assessment/Plan (1) Atypical chest pain: (2) Abnormal ECG: PLAN: Plan The patient is a 47 y/o M w/ PMHx: Obesity, HTN, Suspected CKD stage II unclear subtype based on GFR trending (current recommendations to use non-Af GFR) who presents to the [facility] ED on 03/07/23 with history of onset of retrosternal chest discomfort with history of recent upper respiratory infection starting approxi February 15 with discomfort in his chest initially primarily with coughing noted to be intermittent however now with dull and aching sensation primarily in the substernal region with diaphoresis and dyspnea associated prompting eventual ED evaluation. #1. Chest Pain with Ischemic EKG changes: ED evaluation with troponin initial 72 with repeat delta 52, chest x-ray no acute cardiopulmonary finding, EKG with sinus rhythm with ischemic changes in the anterior leads V3 through V6 with no prior comparison. Will admit to PCU, place on a monitored bed to assure no acute myocardial infarction with serial cardiac enzymes and EKGs. Mag pending. FLP in AM. Cardiology consulted given concern for ischemic type changes with no comparison. ECHO requested. Will judiciously hydrate and maintain n.p.o. status after midnight pending their input in case of cardiac catheterization. ASA, NG, morphine. #2. Recent upper respiratory infection/acute viral syndrome, sinus infection: Patient status post treatment for sinus infection with possibly Augmentin from description and upper respiratory infection however this was several weeks prior, encourage continued diligent self-care. #3. Diabetes mellitus type II: Hold oral home regimen, continue home insulin regimen, ADA diet, accu checks w/ ISS. #4. Hypertension: Continue home regimen lisinopril, PRN hydralazine. #5. Obesity: Weight loss and lifestyle changes encouraged. #6. Suspected Chronic Kidney Disease Stage II based on GFR trending: Admission BUN/Cr 11/25., unclear baseline, will continue to trend. May benefit from early referral outpatient to Nephrology. #7. DVT prophylaxis: Lovenox. Hypokalemia -Corrected per protocol
--- NOTE | 2023-03-08 09:52 | PCM.PN.HOSP ---
Reason for Visit Reason for Visit: Diagnoses Essential (primary) hypertension (03/07/23) Other chest pain (03/07/23) Abnormal electrocardiogram [ECG] [EKG] (03/07/23) Subjective Subjective Patient is a 47-year-old gentleman who presented with chest pain and markedly elevated blood pressure. Admitted to monitored bed for subsequent management Objective Data Objective Data Vital Signs: Vital Signs Temp Pulse Resp BP Pulse Ox O2 Del Method 98 F 110 H 14 163/109 H 96 Room Air 03/08/23 08:40 03/08/23 08:40 03/08/23 08:40 03/08/23 08:40 03/08/23 08:40 03/08/23 08:40 Oxygen Delivery Method Room Air Weight: 100.1 kg Body Mass Index (BMI) 35.6 Intake & Output: Intake and Output for Last 24 Hours 03/06/23 03/07/23 03/08/23 23:59 23:59 23:59 Intake Total 250 / 250 1000 / 1000 Output Total 1025 / 1025 Balance 250 / 250 -25 / -25 Lab / Micro Data 03/08/23 05:30 03/08/23 05:30 Labs: Laboratory Results - last 24 hr 03/07/23 10:30: WBC 8.8, RBC 5.91, Hgb 15.4, Hct 47.4, MCV 80.2, MCH 26.1 L, MCHC 32.5, RDW Std Deviation 36.3, RDW Coeff of Minh 12.7, Plt Count 319, MPV 11.0, Immature Gran % (Auto) 0.600, Neut % (Auto) 58.2, Lymph % (Auto) 29.2, Sully % (Auto) 10.6 H, Eos % (Auto) 0.8, Baso % (Auto) 0.6, Absolute Neuts (auto) 5.1, Absolute Lymphs (auto) 2.56, Nucleated RBC % 0, Differential Comment SCANNED, Sodium 136, Potassium 4.0, Chloride 104, Carbon Dioxide 28.0, Anion Gap 4 L, BUN 10, Creatinine 1.33 H, Estim Creat Clear Calc 70.40, Est GFR (MDRD) Af Amer 74, Est GFR (MDRD) Non-Af 61, BUN/Creatinine Ratio 7.5 L, Glucose 166 H, Calcium 9.1, Troponin I High Sens 72 03/07/23 13:05: Magnesium 2.2, Troponin I High Sens 52 03/07/23 15:36: POC Glucose 109 H 03/07/23 17:30: Troponin I High Sens 50 03/07/23 22:49: POC Glucose 112 H 03/08/23 05:30: WBC 8.4, RBC 5.61, Hgb 14.4, Hct 44.0, MCV 78.4 L, MCH 25.7 L, MCHC 32.7, RDW Std Deviation 36.2, RDW Coeff of Minh 12.7, Plt Count 322, MPV 11.0, Immature Gran % (Auto) 0.500, Neut % (Auto) 64.7, Lymph % (Auto) 24.0, Sully % (Auto) 10.4 H, Eos % (Auto) 0.2, Baso % (Auto) 0.2, Absolute Neuts (auto) 5.4, Absolute Lymphs (auto) 2.01, Nucleated RBC % 0, Sodium 138, Potassium 3.4 L, Chloride 105, Carbon Dioxide 27.0, Anion Gap 6, BUN 9, Creatinine 1.17, Estim Creat Clear Calc 85.53, Est GFR (MDRD) Af Amer 86, Est GFR (MDRD) Non-Af 71, BUN/Creatinine Ratio 7.7 L, Glucose 174 H, Hemoglobin A1c 7.6 H, Calcium 8.8, Total Bilirubin 0.50, AST 19, ALT 33, Alkaline Phosphatase 64, Total Protein 7.9, Albumin 3.9, Globulin 4.0, Albumin/Globulin Ratio 1.0, Triglycerides 309 H, Cholesterol 128, LDL Cholesterol 39, VLDL Cholesterol 62 H, HDL Cholesterol 27 L 03/08/23 07:01: POC Glucose 190 H Radiography Diagnostic Testing: Radiology Impression Chest X-Ray 03/07/23 10:15 IMPRESSION: No acute abnormality is present. Electronically Signed: Satinder Li MD at 11:58 EST , Physical Exam Narrative GENERAL: cooperative HEENT: Atraumatic; normocephalic EYES; Anicteric, Normal Conjunctiva NECK; supple, normal thyroid, RESPIRATORY: Diminished to auscultation CARDIOVASCULAR: Regular S1 S2, GI: soft, normoactive bowel sounds, : No Renal angle tenderness; EXTREMITIES: No edema, no clubbing, MUSCULOSKELETAL: no muscle wasting NEURO: Awake; no lateralizing signs. SKIN: No Rash PSYCH; Flat affect Assessment & Plan Assessment/Plan (1) Atypical chest pain: (2) Abnormal ECG: PLAN: Plan Patient is a 47-year-old gentleman who presented with chest pain and markedly elevated blood pressure. Admitted to monitored bed for subsequent management 1. Chest pain ? With ischemic changes on EKG admitted to monitored bed treatment initiated per protocol consultation placed to cardiology patient seenBy who recommended for patient to undergo subsequent evaluation with a diagnostic left heart catheterization with intervention if needed 2. Acute hypertensive urgency ? Patient presented with systolic blood pressure greater than 200 Home medications resumed in addition to hydralazine as needed. If blood pressure greater than 160 3. Diabetes mellitus type II -patient's oral hypoglycemics held. Placed on long acting insulin, Accu-Cheks a.c. and at bedtime and covered with sliding scale insulin 4.Hypertriglyceridemia ?Plan is to start statin as well as fibrate therapy prior to discharge 5. Class II obesity with BMI of 36 ? Complicating care weight loss advised 6. Acute renal insufficiency - did improve with rehydration 7. Hypokalemia -Corrected per protocol 8. DVT prophylaxis ? SC Lovenox Time spent in the patient's overall evaluation,decision-making process, review of diagnostic data, adjustment of management, discussion with other providers, nursing nursing and ancillary staff involved in patient's care documentation, 50-minute Charges/Coding Visit Charges Inpatient E&M: 16974 Subs Hosp L3
[2023-03-08] MEDS: 0.9% Normal Saline (1000mL) 1,000 ML 15 ML IV (09:59)
[2023-03-08] MEDS: Potassium Chloride Oral Tablet 20 MEQ 40 MEQ PO (10:10)
--- NOTE | 2023-03-08 10:15 | CASEMGMT ---
[facility] is [facility] is as follows:?[facility], [facility], [facility], [facility], and . Leida Ramirez, Discharge Planning Asst.
[2023-03-08] MEDS: Mag Hydrox/Al Hydrox/Simeth 30 ML UDC PO (10:26)
--- NOTE | 2023-03-08 11:31 | CL.D_ITS ---
Patient Name: MARIA A PERKINS Study Date: 03/08/2023 Performing: Vignesh Grant MD Ht: 66 inches 167.64 cm : 1975 Wt: 220.68 lbs 100.1 kg Age: 47 Gender: male BSA: 2.09 PROCEDURE(S) PERFORMED DC01-(17865)LHC/COR/LV CLINICAL PROFILE AND INDICATIONS Indications: Suspected CAD Heart Failure: None Stress/Imaging Stress/Image Study Performed: No CAD Presentations: Symptom unlikely to be ischemic. CONCLUSIONS Normal coronary arteries Normal LV size, wall motion,and systolic function RECOMMENDATIONS Medical therapy DESCRIPTION OF PROCEDURE The patient arrived to the procedure lab. The risks and benefits of the procedure as well as a full description of our services here and current unavailability of surgical backup were fully explained to the patient and/or their significant other prior to the catheterization. The Timeout was completed, verifying the correct patient and procedure. The patient's procedural site was prepped and draped in the usual fashion. Local anesthetic was given subcutaneously to right radial region with Lidocaine 2%. Using a modified Seldinger technique, arterial access was obtained via the right radial artery, a 6Fr sheath was inserted. Right Coronary Artery selective angiography was then performed in multiple views using a 5 Fr. 4.0 [place]ola catheter. Left Coronary Artery selective angiography was performed in multiple views using a 5 Fr. JL3.5 catheter. Left Ventriculography was performed in FRIAS projection using a 5 Fr. Pigtail catheter. LV to AO pullback pressures were then recorded.The arterial sheath was pulled and a TR Band was applied for hemostasis CORONARY ANGIOGRAPHY DOMINANCE: Right Dominant LEFT HEART ASSESSMENT Left Ventricular Ejection Fraction: by LV Gram 55 % Inferior Mid Hypokinesis - Mild Normal Left Ventricular systolic function Normal Left Ventricular systolic function LEFT MAIN: Angiographically normal LEFT ANTERIOR DESCENDING ARTERY: Angiographically normal CIRCUMFLEX ARTERY: Angiographically normal RIGHT CORONARY ARTERY: Angiographically normal COMPLICATIONS No Complications PROCEDURE MEDICATIONS Fentanyl 50 mcg IV Versed 1 mg IV Oxygen: 2 L/min via nasal cannula Heparin given IA 03/08/2023 10:50:59 Metoprolol 5 mg 03/08/2023 11:14:33 Verapamil 2.5mg, Ntg 100mcgs, 3000 units of Heparin given IA 03/08/2023 10:50:59 SUMMARY OF HEMODYNAMIC DATA Time AIR REST ECG 10:38:01 Art 173/76 (101) 10:54:50 AO 147/91 (119) SA 11:13:11 LV 118/-6, 1 11:22:31 LV 119/-2, 5 11:22:39 LV 135/0, 13 11:23:18 LVp 132/1, 12 11:23:24 AOp 136/75 (103) 11:23:31 Signed By Vignesh Grant MD On 03/08/2023 11:31:08 Vignesh Grant MD
--- NOTE | 2023-03-08 11:31 | PN.CARD_ITS ---
Subjective Subjective Patient seen and evaluated. Underwent cardiac catheterization today Objective Data Vital Signs: Vital Signs Temp Pulse Resp BP Pulse Ox O2 Del Method 98 F 115 H 14 163/109 H 96 Room Air 03/08/23 08:40 03/08/23 10:05 03/08/23 08:40 03/08/23 10:05 03/08/23 08:40 03/08/23 08:40 Oxygen Delivery Method Room Air Weight: 220 lb 10.923 oz Body Mass Index (BMI) 35.6 Intake & Output: Intake and Output for Last 24 Hours 03/06/23 03/07/23 03/08/23 23:59 23:59 23:59 Intake Total 250 / 250 1000 / 1000 Output Total 1025 / 1025 Balance 250 / 250 -25 / -25 Lab / Micro Data 03/08/23 05:30 03/08/23 05:30 Labs: Laboratory Results - last 24 hr 03/07/23 10:30: Differential Comment SCANNED 03/07/23 13:05: Magnesium 2.2, Troponin I High Sens 52 03/07/23 15:36: POC Glucose 109 H 03/07/23 17:30: Troponin I High Sens 50 03/07/23 22:49: POC Glucose 112 H 03/08/23 05:30: WBC 8.4, RBC 5.61, Hgb 14.4, Hct 44.0, MCV 78.4 L, MCH 25.7 L, MCHC 32.7, RDW Std Deviation 36.2, RDW Coeff of Minh 12.7, Plt Count 322, MPV 11.0, Immature Gran % (Auto) 0.500, Neut % (Auto) 64.7, Lymph % (Auto) 24.0, [place] % (Auto) 10.4 H, Eos % (Auto) 0.2, Baso % (Auto) 0.2, Absolute Neuts (auto) 5.4, Absolute Lymphs (auto) 2.01, Nucleated RBC % 0, Sodium 138, Potassium 3.4 L , Chloride 105, Carbon Dioxide 27.0, Anion Gap 6, BUN 9, Creatinine 1.17, Estim Creat Clear Calc 85.53, Est GFR (MDRD) Af Amer 86, Est GFR (MDRD) Non-Af 71, BUN/Creatinine Ratio 7.7 L, Glucose 174 H, Hemoglobin A1c 7.6 H, Calcium 8.8, Total Bilirubin 0.50, AST 19, ALT 33, Alkaline Phosphatase 64, Total Protein 7.9, Albumin 3.9, Globulin 4.0, Albumin/Globulin Ratio 1.0, Triglycerides 309 H, Cholesterol 128, LDL Cholesterol 39, VLDL Cholesterol 62 H, HDL Cholesterol 27 L 03/08/23 07:01: POC Glucose 190 H Cardiology Labs/Tests 03/07/23 13:05: Magnesium 2.2 03/08/23 05:30: WBC 8.4, RBC 5.61, Hgb 14.4, Hct 44.0, MCV 78.4 L, MCH 25.7 L, MCHC 32.7, Plt Count 322, MPV 11.0, Immature Gran % (Auto) 0.500, Neut % (Auto) 64.7, Lymph % (Auto) 24.0, [place] % (Auto) 10.4 H, Eos % (Auto) 0.2, Baso % (Auto) 0.2, Absolute Neuts (auto) 5.4, Nucleated RBC % 0, Sodium 138, Potassium 3.4 L, Chloride 105, Carbon Dioxide 27.0, Anion Gap 6, BUN 9, Creatinine 1.17, Est GFR (MDRD) Af Amer 86, Est GFR (MDRD) Non-Af 71, BUN/Creatinine Ratio 7.7 L, Glucose 174 H, Hemoglobin A1c 7.6 H, Calcium 8.8, Total Bilirubin 0.50, Triglycerides 309 H, Cholesterol 128, LDL Cholesterol 39, VLDL Cholesterol 62 H, HDL Cholesterol 27 L Rhythm: EKG: ECHO: Stress Test: Cardiac Cath: PCI: CT Surgery: Holter monitor: EPS: PPM: CXR: Chest CT Scan: Radiography Diagnostic Testing: Radiology Impression Chest X-Ray 03/07/23 10:15 IMPRESSION: No acute abnormality is present. Electronically Signed: Satinder Li MD at 11:58 EST , Echocardiogram 03/07/23 21:06 Interpretation Summary Normal LV size. Left ventricular systolic function is lower limits of normal. The left ventricular ejection fraction is 55 %. Mild (1+) tricuspid valve insufficiency. Ordering Physician: Desirae Nice Referring Physician: Gene Saldana Performed By: Saurabh Barnhart RCS Physical Exam Const alert, oriented x3 and no apparent distress General Appearance: cooperative HEENT hearing grossly normal bilaterally Head and Scalp: atraumatic Eyes EOMs intact bilaterally Neck General: normal visual inspection Chest inspection of chest normal and palpation of chest normal Resp normal respiratory effort Auscultation: clear to auscultation bilaterally Cardio regular rate, regular rhythm, S1 normal heart sound and S2 normal heart sound Jugular Venous Distention: JVD GI normal to inspection, nondistended, normoactive bowel sounds Extremity normal capillary refill and no pedal edema Peripheral Pulses: Yes pulses 2+ throughout and femoral pulses present Skin no rashes or lesions noted Neuro oriented x3 and CN's II-XII intact bilaterally Psych Appearance: grossly normal and appropriate Assessment & Plan Assessment/Plan (1) Atypical chest pain: PLAN: He does present with atypical chest pain and normal cardiac enzymes. Cardiac catheterization today demonstrated essentially normal coronary arteries with mild inferior hypokinesis. Plan to be to continue with aggressive medical therapy. (2) Hypertension: PLAN: I did emphasize to him that we do need aggressive blood pressure therapy. Will recommend Toprol 100 mg a day Amlodipine 10 mg a day Lisinopril 40 mg a day He can be discharged later on today. (3) Abnormal ECG: PLAN: He does have abnormal EKG. the above is most likely from hypertensive heart disease.
--- NOTE | 2023-03-08 11:32 | PCM.DC.SUM ---
Providers Date of Admission: 03/07/23 Date of Discharge: 03/08/23 Primary Care Physician: Dr. Gene Saldana MD Consultations 03/07/23 21:06 Consult: Cardiology Routine Consulting Provider: Vignesh Grant Reason for Consult: Chest Pain, EKG changes EMERGENT Consult: No MD Notified: Yes Date Notified: 03/07/23 Time Notified: 16:42 Method of Notification: ED Physician Initiated Reason For Visit: CHEST PAIN, EKG CHANGES Diagnosis Discharge Diagnosis (1) Atypical chest pain: Status: Acute Code(s): R07.89 - Other chest pain (2) Abnormal ECG: Status: Acute Code(s): R94.31 - Abnormal electrocardiogram [ECG] [EKG] Plan Patient is a 47-year-old gentleman who presented with chest pain and markedly elevated blood pressure. Admitted to monitored bed for subsequent management 1. Chest pain ? With ischemic changes on EKG admitted to monitored bed treatment initiated per protocol consultation placed to cardiology patient seenBy who recommended for patient to undergo subsequent evaluation with a diagnostic left heart catheterization with intervention if needed ? Patient underwent left heart catheterization did not demonstrate any hemodynamically obstructive lesions. 2. Acute hypertensive urgency ? Patient presented with systolic blood pressure greater than 200 Home medications resumed in addition to hydralazine as needed. If blood pressure greater than 160 ? Patient antihypertensive regimen adjusted with addition of amlodipine as well as Toprol-XL 3. Diabetes mellitus type II -patient's oral hypoglycemics held. Placed on long acting insulin, Accu-Cheks a.c. and at bedtime and covered with sliding scale insulin 4.Hypertriglyceridemia ?Plan is to start statin as well as fibrate therapy prior to discharge 5. Class II obesity with BMI of 36 ? Complicating care weight loss advised 6. Acute renal insufficiency - did improve with rehydration 7. Hypokalemia -Corrected per protocol 8. DVT prophylaxis ? SC Lovenox Time spent in the patient's overall evaluation,decision-making process, review of diagnostic data, adjustment of management, discussion with other providers, nursing nursing and ancillary staff involved in patient's care documentation, 50-minute Medications at Discharge Home Medications metformin 500 mg tablet 1,000 mg PO BID diabetes 03/07/23 amlodipine 10 mg tablet 10 mg PO DAILY 90 days #90 tabs 03/08/23 lisinopril 40 mg tablet 40 mg PO DAILY #90 tabs 03/08/23 metoprolol succinate 100 mg tablet,extended release 24 hr (Toprol XL) 100 mg PO DAILY #90 tabs 03/08/23 Hospital Course Summary of Care Provided Minutes Spent on Discharge: 50 Physical Exam Narrative GENERAL: cooperative HEENT: Atraumatic; normocephalic EYES; Anicteric, Normal Conjunctiva NECK; supple, normal thyroid, RESPIRATORY: Diminished to auscultation CARDIOVASCULAR: Regular S1 S2, GI: soft, normoactive bowel sounds, : No Renal angle tenderness; EXTREMITIES: No edema, no clubbing, MUSCULOSKELETAL: no muscle wasting NEURO: Awake; no lateralizing signs. SKIN: No Rash PSYCH; Flat affect Weight / BMI Weight Weight: 100.1 kg Body Mass Index (BMI) 35.6 ABG / Lab / Microbiology Data 03/08/23 05:30 03/08/23 05:30 Laboratory: Laboratory Results - last 24 hr 03/07/23 10:30: Differential Comment SCANNED 03/07/23 13:05: Magnesium 2.2, Troponin I High Sens 52 03/07/23 15:36: POC Glucose 109 H 03/07/23 17:30: Troponin I High Sens 50 03/07/23 22:49: POC Glucose 112 H 03/08/23 05:30: WBC 8.4, RBC 5.61, Hgb 14.4, Hct 44.0, MCV 78.4 L, MCH 25.7 L, MCHC 32.7, RDW Std Deviation 36.2, RDW Coeff of Minh 12.7, Plt Count 322, MPV 11.0, Immature Gran % (Auto) 0.500, Neut % (Auto) 64.7, Lymph % (Auto) 24.0, [place] % (Auto) 10.4 H, Eos % (Auto) 0.2, Baso % (Auto) 0.2, Absolute Neuts (auto) 5.4, Absolute Lymphs (auto) 2.01, Nucleated RBC % 0, Sodium 138, Potassium 3.4 L, Chloride 105, Carbon Dioxide 27.0, Anion Gap 6, BUN 9, Creatinine 1.17, Estim Creat Clear Calc 85.53, Est GFR (MDRD) Af Amer 86, Est GFR (MDRD) Non-Af 71, BUN/Creatinine Ratio 7.7 L, Glucose 174 H, Hemoglobin A1c 7.6 H, Calcium 8.8, Total Bilirubin 0.50, AST 19, ALT 33, Alkaline Phosphatase 64, Total Protein 7.9, Albumin 3.9, Globulin 4.0, Albumin/Globulin Ratio 1.0, Triglycerides 309 H, Cholesterol 128, LDL Cholesterol 39, VLDL Cholesterol 62 H, HDL Cholesterol 27 L 03/08/23 07:01: POC Glucose 190 H Radiography Diagnostic Testing: Radiology Impression Chest X-Ray 03/07/23 10:15 IMPRESSION: No acute abnormality is present. Electronically Signed: Satinder Li MD at 11:58 EST , Echocardiogram 03/07/23 21:06 Interpretation Summary Normal LV size. Left ventricular systolic function is lower limits of normal. The left ventricular ejection fraction is 55 %. Mild (1+) tricuspid valve insufficiency. Ordering Physician: Desirae Nice Referring Physician: Gene Sadlana Performed By: Saurabh Barnhart RCS D/C Instructions Discharge Diet: 1800 Calorie Control Diet and 2000 mg Sodium Diet Discharge Activity: Return to Normal Activity Call your doctor if you observe: Fever of 101 or Higher, Shortness of breath, Fainting spells and Chest pain Meaningful Use Info Meaningful Use Diagnoses (Choose all that apply): None applicable Discharge Plan Admission Admit Date/Time: 03/07/23 15:13 Attending Provider: Thee Acosta Primary Care Provider: Gene Saldana Consulting Providers: Vignesh Grant; Desirae Nice Discharge Orders/Prescriptions Prescriptions: New amlodipine 10 mg Tablet 10 mg PO DAILY 90 Days Qty: 90 0RF lisinopril 40 mg Tablet 40 mg PO DAILY Qty: 90 0RF metoprolol succinate [Toprol XL] 100 mg tablet extended release 24 hr 100 mg PO DAILY Qty: 90 0RF Continued metformin 500 mg tablet 1,000 mg PO BID Discontinued lisinopril 10 mg tablet 10 mg PO DAILY Patient Comments: TAKE 1 TABLET BY MOUTH EVERY DAY Referrals / Follow Up: Vignesh Grant MD [Med Staff - Active Staff] - Within 1 Month Gene Saldana MD [Primary Care Provider] - Within 2 Weeks Disposition Disposition (needs filled in before D/C Order can be placed): Home, Self Care Charges/Coding Visit Charges Inpatient E&M: 40100 Disch Hosp >30min
[2023-03-08] MEDS: Insulin Lispro 100 UNIT/ML INSULN.PEN SC (12:17)
[2023-03-08 12:24] LABS: Bedside Glucose 168 mg/dL (74-106)
--- NOTE | 2023-03-08 12:40 | CASEMGMT ---
AHSAN GALEANA NOTE: Pt being discharged. RN CM to room. Pt sitting up in chair. @ bedside. Pt and deny having any concerns w/discharging home. They would like new Rx's delivered to his room from [facility] retail pharmacy prior to discharge. AHSAN Martínez, made aware. [place] KELLYN AHSAN CM
--- NOTE | 2023-03-08 13:03 | PHA.DC.MC.R ---
Pharmacy [facility] has performed discharge medication reconciliation and counseling for this patient. The patient's discharge medication list was reviewed for discrepancies and discrepancies were resolved. The patient was counseled on the following discharge medications and changes in medications for homegoing were reviewed. The Reason for Use, instructions for use, and potential side effects were reviewed for all new medications. The patient's questions regarding all of their medications were answered. 1. Lisinopril 40 mg PO daily 2. Metoprolol succinate 100 mg PO daily 3. Amlodipine 10 mg PO daily The patient was able to verbally demonstrate an understanding of their discharge medications. Medications at Discharge Home Medications metformin 500 mg tablet 1,000 mg PO BID diabetes 03/07/23 amlodipine 10 mg tablet 10 mg PO DAILY 90 days #90 tabs 03/08/23 lisinopril 40 mg tablet 40 mg PO DAILY #90 tabs 03/08/23 metoprolol succinate 100 mg tablet,extended release 24 hr (Toprol XL) 100 mg PO DAILY #90 tabs 03/08/23
[2023-03-08] MEDS: Metoprolol(XL)Succ 50 MG Tablet 100 MG PO (15:22)
== END 2023-03-08 11:41 | disposition home or self-care (01) ==
LOC: ED 14:20 → PCU 17:33
PROVIDERS: Admitting Provider Family Medicine; Emergency Provider Emergency Medicine; PCP Internal Medicine; Visit Provider Internal Medicine
DX: R07.89 Other chest pain (principal); E11.22 Type 2 diabetes mellitus with diabetic chronic kidney disease; E11.65 Type 2 diabetes mellitus with hyperglycemia; E87.6 Hypokalemia; I12.9 Hypertensive chronic kidney disease with stage 1 through stage 4 chronic kidney disease, or unspecified chronic kidney disease; Z79.84 Long term (current) use of oral hypoglycemic drugs; R94.31 Abnormal electrocardiogram [ECG] [EKG]; E78.1 Pure hyperglyceridemia; Z68.36 Body mass index [BMI] 36.0-36.9, adult; E66.9 Obesity, unspecified; N18.2 Chronic kidney disease, stage 2 (mild); R06.00 Dyspnea, unspecified; Z79.899 Other long term (current) drug therapy; I16.0 Hypertensive urgency; N28.9 Disorder of kidney and ureter, unspecified
CPT/HCPCS: 36415; 71045; 80048; 80053; 80061; 82962; 83036; 83735; 84484; 85025; 93005; 93306; 93458; 94668; 96361; 96374; 96375; 96376; 99152; 99153; 99221; 99285; J7030; J7040; Q9967; A4216; C1769; C1894; G0378